=== PATIENT | male | born 1970 | race Hispanic/Latino ===

== ENCOUNTER 2016-12-04 07:35 | Inpatient (IN) | payer BC ==
[2016-12-04 08:40] LABS: Basophils % (Auto) 0.5 % (0.0-1.8); Eosinophils % (Auto) 0.1 % (0.0-4.3); Hematocrit 45.6 % (35.5-45.6); Hemoglobin 15.2 gm/dl (11.8-15.2); Mean Corpuscular HGB Conc 33 % (32-34); Mean Corpuscular Hemoglobin 31 pg (28-32); Mean Corpuscular Volume 93 fl (84-94); Platelet Count 168 K/mm3 (140-440); Red Blood Count 4.91 M/mm3 (3.65-5.03); Red Cell Distribution Width 12.6 % (13.2-15.2); White Blood Count 12.5 K/mm3 (4.5-11.0)
[2016-12-04 08:56] LABS: Anion Gap 17 mmol/L; BUN/Creatinine Ratio 23.75; Blood Urea Nitrogen 19 mg/dL (9-20); Carbon Dioxide 25 mmol/L (22-30); Chloride 102.6 mmol/L (98-107); Glucose 115 mg/dL (75-100); Potassium 4.2 mmol/L (3.6-5.0); Sodium 140 mmol/L (137-145)
--- NOTE | 2016-12-04 08:57 | Emergency Department Report ---
ED Chest Pain HPI - General Chief Complaint: Chest Pain Stated Complaint: CHEST PAIN Time Seen by Provider: 12/04/16 08:28 Source: patient, EMS Mode of arrival: Stretcher Limitations: No Limitations - History of Present Illness Initial Comments: Patient describes a "muscular pain in the left side of his chest which occurred at 5:30 this morning as he was getting ready to go to work. He stated that he vomited once but didn't feel nauseated. He was lightheaded. This is resolved. His chest pain as as well resolved. He was given nitroglycerin and aspirin and a bolus of 300 mL of normal saline prior to arrival. I do not know why he was given bolus of saline. He tells me that the paramedics found his blood pressure to be elevated. It is approximately 150/95 at the time of my encounter. He states no history of hypertension. He is a smoker. He has no family history of coronary artery disease that he is aware of. His mother had extensive peripheral vascular disease of her lower extremity. He has had no prior cardiac workup. -: Gradual Onset: during rest Pain Location: left chest Pain Radiation: none, other (felt like he was losing strength in both his hands) Severity: moderate Severity scale (0 -10): 0 Quality: dull Consistency: now resolved Improves With: nothing Worsens With: nothing re: vomting, other Other Symptoms: denies: cough, fever, syncope, rash, acid taste in mouth, leg swelling Treatments Prior to Arrival: none Aspirin use within the Past 7 Days: (0) No - Related Data Home Medications Medication Instructions Recorded Confirmed Last Taken No Known Home Medications [No 12/04/16 12/04/16 Unknown Reported Home Medications] Allergies Allergy/AdvReac Type Severity Reaction Status Date / Time No Known Allergies Allergy Unverified 12/04/16 08:01 Heart Score - HEART Score History: Moderately suspicious EKG: Normal Age: 45-65 Risk factors: 1-2 risk factors Troponin: < normal limit HEART Score: 3 - Critical Actions Critical Actions: 0-3 pts:0.9-1.7%risk of adverse cardiac event.Candidate for discharge ED Review of Systems ROS: Stated complaint: CHEST PAIN Other details as noted in HPI Constitutional: denies: chills, fever Eyes: denies: eye pain, eye discharge, vision change ENT: denies: ear pain, throat pain Respiratory: denies: cough, shortness of breath, wheezing Cardiovascular: as per HPI, other (felt like heart was racing and lightheaded). denies: palpitations Endocrine: no symptoms reported Gastrointestinal: vomiting. denies: abdominal pain, nausea, diarrhea Genitourinary: denies: urgency, dysuria Musculoskeletal: denies: back pain, joint swelling, arthralgia Skin: denies: rash, lesions Neurological: denies: headache, weakness, paresthesias Psychiatric: denies: anxiety, depression Hematological/Lymphatic: denies: easy bleeding, easy bruising ED Past Medical Hx - Past Medical History Previous Medical History?: No - Surgical History Past Surgical History?: No - Social History Smoking Status: Current Every Day Smoker Substance Use Type: Alcohol - Medications Home Medications: Home Medications Medication Instructions Recorded Confirmed Last Taken Type No Known Home Medications [No 12/04/16 12/04/16 Unknown History Reported Home Medications] ED Physical Exam - General Limitations: No Limitations General appearance: alert, in no apparent distress - Head Head exam: Present: atraumatic, normocephalic - Eye Eye exam: Present: normal appearance. Absent: scleral icterus - ENT ENT exam: Present: mucous membranes moist - Neck Neck exam: Present: normal inspection. Absent: tenderness, meningismus - Respiratory Respiratory exam: Present: normal lung sounds bilaterally. Absent: respiratory distress - Cardiovascular Cardiovascular Exam: Present: regular rate, normal rhythm. Absent: systolic murmur, diastolic murmur, rubs, gallop - GI/Abdominal GI/Abdominal exam: Present: soft, normal bowel sounds. Absent: distended, tenderness, guarding, rebound, rigid - Rectal Rectal exam: Present: deferred - Extremities Exam Extremities exam: Present: normal inspection - Back Exam Back exam: Present: normal inspection - Neurological Exam Neurological exam: Present: alert, oriented X3, CN II-XII intact. Absent: motor sensory deficit - Psychiatric Psychiatric exam: Present: normal affect, normal mood - Skin Skin exam: Present: warm, dry, intact, normal color. Absent: rash ED Course Vital Signs 12/04/16 12/04/16 12/04/16 07:48 07:54 08:00 Temperature 99 F Pulse Rate 96 H 65 59 L Respiratory 18 13 19 Rate Blood Pressure 137/82 145/87 Blood Pressure [Right] O2 Sat by Pulse 98 98 Oximetry 12/04/16 12/04/16 08:03 08:04 Temperature 99 F Pulse Rate 65 Respiratory 13 13 Rate Blood Pressure Blood Pressure 137/82 [Right] O2 Sat by Pulse 98 98 Oximetry - Reevaluation(s) Reevaluation #1: Nitro paste, aspirin. The patient is admitted to telemetry to the hospitalist service. 12/04/16 09:09 MEDINA score - Medina Score Age > 65: (0) No Aspirin use within the Past 7 Days: (0) No 3 or more CAD Risk Factors: (0) No 2 or more Angina events in past 24 hrs: (0) No Known CAD with more than 50% Stenosis: (0) No Elevated Cardiac Markers: (0) No ST Deviation Greater than 0.5mm: (0) No MEDINA Score: 0 ED Medical Decision Making - Lab Data Result diagrams: 12/04/16 08:24 12/04/16 08:24 Laboratory Results - last 24 hr 12/04/16 12/04/16 08:24 08:24 WBC 12.5 H RBC 4.91 Hgb 15.2 Hct 45.6 MCV 93 MCH 31 MCHC 33 RDW 12.6 L Plt Count 168 Lymph % (Auto) 7.7 L [place] % (Auto) 3.9 Eos % (Auto) 0.1 Baso % (Auto) 0.5 Lymph # 1.0 L [place] # 0.5 Eos # 0.0 Baso # 0.1 Seg Neutrophils % 87.8 H Seg Neutrophils # 11.0 H Sodium 140 Potassium 4.2 Chloride 102.6 Carbon Dioxide 25 Anion Gap 17 BUN 19 Creatinine 0.8 Estimated GFR > 60 BUN/Creatinine Ratio 23.75 Glucose 115 H Calcium 9.0 Troponin T < 0.010 - EKG Data -: EKG Interpreted by De EKG shows normal: sinus rhythm, axis, intervals, QRS complexes, ST-T waves Rate: normal - EKG Data Interpretation: normal EKG - Radiology Data Radiology results: pending Critical care attestation.: If time is entered above; I have spent that time in minutes in the direct care of this critically ill patient, excluding procedure time. ED Disposition Clinical Impression: Chest pain Qualifiers: Chest pain type: unspecified Qualified Code(s): R07.9 - Chest pain, unspecified Hypertension Qualifiers: Hypertension type: unspecified Qualified Code(s): I10 - Essential (primary) hypertension Disposition: 09 OP ADMIT IP TO THIS HOSP Is pt being admited?: Yes Does the pt Need Aspirin: Yes (received in the field) Condition: Stable Instructions: Chest Pain (ED), Hypertension (ED) Referrals: LOIS MARX MD [Primary Care Provider] - 3-5 Days Time of Disposition: 09:11
--- NOTE | 2016-12-04 09:01 | XRay Report ---
Single view chest: History: Hypertension. Findings: Normal cardiomediastinal silhouette. Trachea is midline. Suspicion of mild emphysema. No acute consolidation or pleural effusion. Impression: Suspicion of mild emphysema. No lung changes.
[2016-12-04] MEDS ORDERED: NITRO-BID 2% TP ONE (09:12)
[2016-12-04 09:57] LABS: INR 0.84 (0.87-1.13)
[2016-12-04 09:58] LABS: Partial Thromboplastin Time 28.6 Sec. (24.2-36.6)
[2016-12-04 10:12] LABS: Alanine Aminotransferase 13 units/L (7-56); Albumin 4.2 g/dL (3.9-5); Albumin/Globulin Ratio 2.1 %; Alkaline Phosphatase 33 units/L (35-129); Total Protein 6.2 g/dL (6.3-8.2)
[2016-12-04 10:17] LABS: Bilirubin,Direct < 0.2 mg/dL (0-0.2)
[2016-12-04] MEDS ORDERED: TYLENOL PO PRN (10:37)
[2016-12-04] MEDS ORDERED: ATIVAN PO ONE (10:48)
[2016-12-04] MEDS ORDERED: MORPHINE IV PRN (11:00)
[2016-12-04] MEDS ORDERED: DULCOLAX PR PRN (11:00)
[2016-12-04] MEDS ORDERED: APRESOLINE IV PRN (11:00)
[2016-12-04] MEDS ORDERED: NITROSTAT SL PRN (11:00)
--- NOTE | 2016-12-04 11:04 | History and Physical Report ---
History of Present Illness Date of examination: 12/04/16 Date of admission: 12/04/2016 Chief complaint: Chest pain History of present illness: Patient is a 46-year-old male with no past medical history, who presents to emergency department for complaining of midsternal chest pain. He states that the pain began this morning constant midsternal chest pain. The pain was located over his substerna somewhat in the left pigastric area . He describes the quality as a chest tightness/pressure without radiation to the shoulder, arm , back, or jaw. It has been a constant pain since it started this morning. The pain lasted for few hours and non-radiating. The painful episodes did not increase in intensity or severity during this time. The patient denies chest pain at present time. Patient stated that he vomited twice. Patient reported begin lightheaded and diaphoresis including feeling clammy.At the ED the patient was given nitroglycerin and ASA which he claims helped alleviate the pain somewhat. No aggravating factors. He denies shortness of breath, dizziness and heart palpitations during these episodes of pain. Patient have found by EMS his blood pressure to be elevated around 200 systolic, but patient reported no history of hypertension. He admit is a smoker. He has had no prior cardiac workup. His mother had extensive peripheral vascular disease of her lower extremity. Past History Past Medical History: No medical history Past Surgical History: No surgical history Social history: smoking Family history: CAD, hypertension Medications and Allergies Allergies Allergy/AdvReac Type Severity Reaction Status Date / Time No Known Allergies Allergy Unverified 12/04/16 08:01 Home Medications Medication Instructions Recorded Confirmed Last Taken Type No Known Home Medications [No 12/04/16 12/04/16 Unknown History Reported Home Medications] Active Meds: Active Medications Acetaminophen (Tylenol) 650 mg PO Q4H PRN PRN Reason: Pain MILD(1-3)/Fever >100.5/OTERO Amlodipine Besylate (Norvasc) 10 mg PO DAILY MARY Aspirin (Aspirin) 325 mg PO DAILY MARY Bisacodyl (Dulcolax) 10 mg VT QDAY PRN PRN Reason: Constipation unrelieved by MOM Hydralazine HCl (Apresoline) 10 mg IV Q6H PRN PRN Reason: SBP>160 Morphine Sulfate (Morphine) 2 mg IV Q4H PRN PRN Reason: Pain, Moderate (4-6) Nitroglycerin (Nitrostat) 0.4 mg SL .Q5MIN PRN PRN Reason: Chest Pain Review of Systems Constitutional: no weight gain, no fever, no chills, no sweats Ears, nose, mouth and throat: no ear discharge, no tinnitis, no decreased hearing, no nose pain, no nasal congestion Cardiovascular: chest pain, lightheadedness, no palpitations, no rapid/ irregular heart beat, no edema, no syncope, no shortness of breath, no dyspnea on exertion Respiratory: no cough, no cough with sputum, no excessive sputum, no shortness of breath, no dyspnea on exertion Gastrointestinal: no diarrhea, no constipation, no change in bowel habits, no hematemesis Genitourinary Male: no urinary frequency, no urinary hesitancy, no nocturia, no incontinence Musculoskeletal: no shooting arm pain, no arm numbness/tingling, no low back pain, no shooting leg pain Integumentary: no redness, no sores, no wounds, no jaundice Neurological: no weakness, no parathesias, no numbness, no tingling Psychiatric: no change in sleep habits, no sleep disturbances, no insomnia, no hypersomnia, no change in appetite Endocrine: no excessive thirst, no polydipsia, no polyuria, no nocturia, no excessive sweating Hematologic/Lymphatic: no easy bruising, no easy bleeding Allergic/Immunologic: no urticaria, no allergic rhinitis Exam - Constitutional Vitals: Temp Pulse Resp BP Pulse Ox 99 F 85 15 132/90 96 12/04/16 08:03 12/04/16 10:20 12/04/16 10:20 12/04/16 10:20 12/04/16 10:20 General appearance: Present: no acute distress - EENT Eyes: Present: PERRL ENT: hearing intact, clear oral mucosa - Neck Neck: Present: supple - Respiratory Respiratory effort: normal Respiratory: bilateral: CTA - Cardiovascular Heart rate: 85 Rhythm: regular Heart Sounds: Present: S1 & S2 - Extremities Extremities: no ischemia Peripheral Pulses: within normal limits - Abdominal General gastrointestinal: Present: soft, non-tender Male genitourinary: Present: deferred - Rectal Rectal Exam: deferred - Integumentary Integumentary: Present: clear, warm, dry - Musculoskeletal Musculoskeletal: strength equal bilaterally - Psychiatric Psychiatric: appropriate mood/affect - Neurologic Neurologic: CNII-XII intact - Allied Health Allied health notes reviewed: nursing Results - Labs CBC & Chem 7: 12/04/16 08:24 12/04/16 08:24 Labs: Laboratory Last Values WBC 12.5 K/mm3 (4.5-11.0) H 12/04/16 08:24 RBC 4.91 M/mm3 (3.65-5.03) 12/04/16 08:24 Hgb 15.2 gm/dl (11.8-15.2) 12/04/16 08:24 Hct 45.6 % (35.5-45.6) 12/04/16 08:24 MCV 93 fl (84-94) 12/04/16 08:24 MCH 31 pg (28-32) 12/04/16 08:24 MCHC 33 % (32-34) 12/04/16 08:24 RDW 12.6 % (13.2-15.2) L 12/04/16 08:24 Plt Count 168 K/mm3 (140-440) 12/04/16 08:24 Lymph % (Auto) 7.7 % (13.4-35.0) L 12/04/16 08:24 [place] % (Auto) 3.9 % (0.0-7.3) 12/04/16 08:24 Eos % (Auto) 0.1 % (0.0-4.3) 12/04/16 08:24 Baso % (Auto) 0.5 % (0.0-1.8) 12/04/16 08:24 Lymph # 1.0 K/mm3 (1.2-5.4) L 12/04/16 08:24 [place] # 0.5 K/mm3 (0.0-0.8) 12/04/16 08:24 Eos # 0.0 K/mm3 (0.0-0.4) 12/04/16 08:24 Baso # 0.1 K/mm3 (0.0-0.1) 12/04/16 08:24 Seg Neutrophils % 87.8 % (40.0-70.0) H 12/04/16 08:24 Seg Neutrophils # 11.0 K/mm3 (1.8-7.7) H 12/04/16 08:24 PT 11.9 Sec. (12.2-14.9) L 12/04/16 08:55 INR 0.84 (0.87-1.13) L 12/04/16 08:55 APTT 28.6 Sec. (24.2-36.6) 12/04/16 08:55 Sodium 140 mmol/L (137-145) 12/04/16 08:24 Potassium 4.2 mmol/L (3.6-5.0) 12/04/16 08:24 Chloride 102.6 mmol/L (98-107) 12/04/16 08:24 Carbon Dioxide 25 mmol/L (22-30) 12/04/16 08:24 Anion Gap 17 mmol/L 12/04/16 08:24 BUN 19 mg/dL (9-20) 12/04/16 08:24 Creatinine 0.8 mg/dL (0.8-1.5) 12/04/16 08:24 Estimated GFR > 60 ml/min 12/04/16 08:24 BUN/Creatinine Ratio 23.75 % 12/04/16 08:24 Glucose 115 mg/dL (75-100) H 12/04/16 08:24 Calcium 9.0 mg/dL (8.4-10.2) 12/04/16 08:24 Total Bilirubin 0.40 mg/dL (0.1-1.2) 12/04/16 08:55 Direct Bilirubin < 0.2 mg/dL (0-0.2) 12/04/16 08:55 AST 15 units/L (5-40) 12/04/16 08:55 ALT 13 units/L (7-56) 12/04/16 08:55 Alkaline Phosphatase 33 units/L (35-129) L 12/04/16 08:55 Troponin T < 0.010 ng/mL (0.00-0.029) 12/04/16 08:24 NT-Pro-B Natriuret Pep 40.37 pg/mL (0-450) 12/04/16 08:55 Total Protein 6.2 g/dL (6.3-8.2) L 12/04/16 08:55 Albumin 4.2 g/dL (3.9-5) 12/04/16 08:55 Albumin/Globulin Ratio 2.1 % 12/04/16 08:55 - Imaging and Cardiology Chest x-ray: image reviewed (mild emphysema) Assessment and Plan Assessment and plan: Patient is a 46-year-old male with no past medical history, who presents to emergency department for complaining of midsternal chest pain. He states that the pain began this morning constant midsternal chest pain. The pain was located over his substerna somewhat in the left pigastric area . He describes the quality as a chest tightness/pressure without radiation to the shoulder, arm , back, or jaw. Chest Pain We will admit to telemetry floor. EKG normal sinus rate [address] elevation or T-wave inversion. Negative cardiac enzyme troponin X1 and we will get serial troponin Start on aspirin Nitroglycerin when necessary Morphine ordered for pain Stress test ordered. Hypertension Started on Amlodipine 10mg daily IV hydralazine for SBP >160 Closely monitor blood pressure Leukocytosis Appears to be reactive no evidence of infection; CXR negative and we will get UA Repeat CBC and closely monitor Tobacco use Smoking cessation counseling done, patient strongly advised to quit. DVT prophylaxis Lovenox Advance Directives: Yes VTE prophylaxis?: Chemical Contraindication Mechanical VTE Prophylaxis: Treatment Not Indicated Plan of care discussed with patient/family: Yes
[2016-12-04 12:29] LABS: Bilirubin,Urine NEG (Negative); Blood,Urine NEG (Negative); Ketones,Urine TR mg/dL (Negative); Leukocyte Esterase,Urine NEG (Negative); Mucus,Urine 1+ /HPF; Nitrite,Urine NEG (Negative); Protein,Urine <15 mg/dL mg/dL (Negative); Urobilinogen,Urine < 2.0 mg/dL (<2.0); WBC,Urine < 1.0 /HPF (0.0-6.0)
[2016-12-04] MEDS ORDERED: ALUM-MAG HYDROX-SIMETH 200-200-20MG/5ML PO PRN (18:56)
[2016-12-05 05:36] LABS: Basophils % (Auto) 0.5 % (0.0-1.8); Eosinophils % (Auto) 1.1 % (0.0-4.3); Hematocrit 45.2 % (35.5-45.6); Hemoglobin 15.6 gm/dl (11.8-15.2); Mean Corpuscular HGB Conc 35 % (32-34); Mean Corpuscular Hemoglobin 32 pg (28-32); Mean Corpuscular Volume 92 fl (84-94); Platelet Count 161 K/mm3 (140-440); Red Cell Distribution Width 12.8 % (13.2-15.2); White Blood Count 9.7 K/mm3 (4.5-11.0)
[2016-12-05 05:54] LABS: Anion Gap 14 mmol/L; Blood Urea Nitrogen 14 mg/dL (9-20); Calcium 8.9 mg/dL (8.4-10.2); Carbon Dioxide 27 mmol/L (22-30); Chloride 101.7 mmol/L (98-107); Glucose 101 mg/dL (75-100); Sodium 139 mmol/L (137-145)
[2016-12-05] MEDS ORDERED: LEXISCAN IV ONE ×2 (09:00→09:01)
--- NOTE | 2016-12-05 09:44 | Discharge Summary ---
Providers - Providers Date of Admission: 12/04/16 10:37 Date of discharge: 12/05/16 Attending physician: LANCE NANCE Primary care physician: LOIS MARX Hospitalization Condition: Good Hospital course: Patient is a 46-year-old male with no past medical history, who presents to emergency department for complaining of midsternal chest pain. He states that the pain began this morning constant midsternal chest pain.The pain was located over his substerna somewhat in the left epigastric area . He describes the quality as a chest tightness/pressure without radiation to the shoulder, arm, back, or jaw. Patient was diagnosed with chest pain, hypertension and leukocytosis. Patient presented with atypical chest pain, ACS was ruled out, stress test normal MPI, negative cardiac enzymes, ECGs shows normal sinus rythm , CXR was wnl and CTA with no risk for pulmonary embolism. Patient chest pain probably from musculoskeletal. He was treated with IV fluid hydration and antihypertensive medications. Patient is clinically improved. Patient advised to follow-up with her primary care provider. Discharge Diagnosed Chest Pain due to Costochondritis Hypertension Tobacco abuse Disposition: DC-01 TO HOME OR SELFCARE Time spent for discharge: 33 minutes Core Measure Documentation - Palliative Care Palliative Care/ Comfort Measures: Not Applicable - Core Measures Any of the following diagnoses?: none Exam - Constitutional Vitals: Temp Pulse Resp BP Pulse Ox 97.3 F L 56 L 18 133/93 98 12/05/16 07:35 12/05/16 07:35 12/05/16 07:35 12/05/16 07:35 12/05/16 07:35 General appearance: Present: no acute distress - EENT Eyes: Present: PERRL ENT: hearing intact - Neck Neck: Present: supple, normal ROM - Respiratory Respiratory effort: normal Respiratory: bilateral: CTA - Cardiovascular Rhythm: regular Heart Sounds: Present: S1 & S2 - Extremities Extremities: no ischemia Peripheral Pulses: within normal limits - Abdominal General gastrointestinal: Present: soft, non-tender Male genitourinary: Present: deferred - Rectal Rectal Exam: deferred - Integumentary Integumentary: Present: clear, warm, dry - Musculoskeletal Musculoskeletal: strength equal bilaterally - Psychiatric Psychiatric: appropriate mood/affect - Neurologic Neurologic: CNII-XII intact - Allied Health Allied health notes reviewed: nursing Plan Activity: no restrictions Weight Bearing Status: Weight Bear as Tolerated Follow up with: LOIS MARX MD [Primary Care Provider] - 3-5 Days Prescriptions: amLODIPine [Norvasc] 10 mg PO DAILY #30 tablet
[2016-12-05] MEDS ORDERED: LOVENOX SUB-Q SCH (10:00)
[2016-12-05] MEDS ORDERED: ASPIRIN PO SCH (10:00)
[2016-12-05] MEDS ORDERED: NORVASC PO SCH (10:00)
--- NOTE | 2016-12-05 10:27 | Query- Chest Pain ---
Norma Mccullough____Jose G Date:____12/05/16 Public Relations Writer/CDS: Rohit Phone#: [phone] Exercise your independent professional judgment when responding to query. Questions asked do not imply a particular answer is desired or expected. We greatly appreciate your clarification on this issue. Clinical Documentation States: 46 year old male was admitted on 12/04/16 The H&P (Dr. Araiza) states " Chief complaint: Chest pain History of present illness: Patient is a 46-year-old male with no past medical history, who presents to emergency department for complaining of midsternal chest pain Chest Pain We will admit to telemetry floor. EKG normal sinus rate [address] elevation or T-wave inversion. Negative cardiac enzyme troponin X1 and we will get serial troponin Start on aspirin Nitroglycerin when necessary Morphine ordered for pain Stress test ordered. " Please document the etiology of Chest Pain: [ ] Myocardial Infarction [ ] Pneumonia [ ] Mediastinitis [x ] Costochondritis [ ] Pulmonary Embolism [ ] Coronary Artery Disease [ ] GERD [ ] Other: [ ] Comment/Explanation: Present on Admission: [x ] Yes (Y) [ ] Clinically undeterminable (W) [ ] No(N) Please document response in your Progress Notes and/or Discharge Summary and indicate if the condition was present on admission. VANCE
[2016-12-05 15:26] VITALS: BP 136/88
--- NOTE | 2016-12-06 05:26 | Treadmill Report ---
INDICATION: Chest pain. ORDERING PHYSICIAN: Yelitza Araiza M.D. FINDINGS: There is no scintigraphic evidence of myocardial ischemia. There is normal left ventricular size and systolic function. The left ventricular ejection fraction is measured at 58%. Normal wall motion and wall thickening is noted on gated imaging. CONCLUSION: Normal perfusion scan. JOB# [id number] [place]
== END 2016-12-05 12:30 | disposition home or self-care (01) | DRG 206 ==
LOC: ED 07:35 → 4A 10:37
PROVIDERS: ADMIT Internal Medicine; ATTEND Internal Medicine
DX: M94.0 Chondrocostal junction syndrome [Tietze] (principal); I10 Essential (primary) hypertension; D72.829 Elevated white blood cell count, unspecified; F17.200 Nicotine dependence, unspecified, uncomplicated; Z82.49 Family history of ischemic heart disease and other diseases of the circulatory system; Z71.6 Tobacco abuse counseling
CPT/HCPCS: 36415; 71010; 78452; 80048; 80074; 81001; 83880; 84484; 85025; 85610; 85730; 87040; 93005; 93010; 93017; 99406; A9502; J1650; J2785